=== PATIENT | female | born 1995 | race Caucasian/White ===

== ENCOUNTER 2017-03-04 21:00 | Emergency (ER) | payer SELFPAY ==
[~2017-03-04 21:00] MED LIST: NAPR250T57 PO; PHEN12.5 PO; Z.0.NO CURRENT MEDS
[2017-03-04 21:02] VITALS: BP 178/78; PULSE 114; RESP 16; TEMP 98.7; O2SAT 100
--- NOTE | 2017-03-04 22:03 | RADRPT ---
EXAM DATE/TIME: 03/04/2017 21:34 [facility] COMPARISON: No previous studies available for comparison. INDICATIONS : Chest pain today. MEDICAL HISTORY : None. SURGICAL HISTORY : None. ENCOUNTER: Initial ACUITY: 1 day PAIN SCORE: 3/10 LOCATION: Bilateral chest FINDINGS: PA and lateral views of the chest demonstrate the lungs to be symmetrically aerated without evidence of mass, infiltrate or effusion. The cardiomediastinal contours are unremarkable. Osseous structure s are intact. CONCLUSION: No acute cardiopulmonary disease. Ferny Mcgrath MD on March 04, 2017 at 22:00 Board Certified Radiologist. This report was verified electronically.
[2017-03-04 22:08] LABS: AUTOMATED NEUTROPHIL # 7.4 TH/MM3 (1.8-7.7); BASOPHIL # 0.1 TH/MM3 (0-0.2); BASOPHIL % 0.5 % (0.0-2.0); EOSINOPHIL # 0.3 TH/MM3 (0-0.4); EOSINOPHIL % 2.2 % (0.0-4.0); HEMATOCRIT 36.9 % (35.0-46.0); HEMOGLOBIN 12.7 GM/DL (11.6-15.3); LYMPH % 27.4 % (9.0-44.0); LYMPHOCYTE # 3.3 TH/MM3 (1.0-4.8); MEAN CELL VOLUME 85.7 FL (80.0-100.0); MEAN CORPUSCULAR HEMOGLOBIN 29.4 PG (27.0-34.0); MEAN CORPUSCULAR HGB CONC 34.3 % (32.0-36.0); MEAN PLATELET VOLUME 7.6 FL (7.0-11.0); MONO % 8.1 % (0.0-8.0); NEUT % 61.8 % (16.0-70.0); PLATELET COUNT 416 TH/MM3 (150-450); RED BLOOD COUNT 4.31 MIL/MM3 (4.00-5.30); RED CELL DISTRIBUTION WIDTH 13.3 % (11.6-17.2)
[2017-03-04 22:15] LABS: PROTHROMBIN TIME - PATIENT 10.2 SEC (9.8-11.6)
--- NOTE | 2017-03-04 22:20 | PD ---
HPI Chief Complaint: Chest Pain Time Seen by Provider: 22:12 Travel History International Travel<30 days: No Contact w/Intl Traveler<30days: No Traveled to known affect area: No History of Present Illness HPI 21-year-old female here for evaluation of chest pain. The patient reports sudden onset of substernal chest pain that started around 3-4 hours ago, was initially sharp and severe, now is 3 out of 10, nonradiating, slightly worse with movements. She denies dyspnea. No fevers, chills, cough, or recent illness. No hemoptysis. No paresthesias or motor deficits. No known history of cardiac disease. No history of DVT or PE. No family history of cardiac disease. She reports having a similar episode a few years ago and was told that she had some inflammation. [facility] Past Medical History Medical History: Denies Significant Hx Developmental Delay: No Immunizations Current: Yes ?: Not LMP: 02/19/17 Past Surgical History Tonsillectomy: Yes Social History Alcohol Use: No Tobacco Use: No Substance Use: No Allergies-Medications (Allergen,Severity, Reaction): Coded Allergies: clindamycin (Unverified Allergy, Unknown, 10/28/16) Reported Meds & Prescriptions Reported Meds & Active Scripts Active Phenergan (Promethazine HCl) 12.5 Mg Tab 12.5 Mg PO Q6HPRN FOR NAUSEA Naprosyn (Naproxen) 250 Mg Tab 250 Mg PO Q8HPRN 5 Days Reported No Current Meds (Miscellaneous Medication) [facility] Review of Systems Except as stated in HPI: all other systems reviewed are Neg Physical Exam Narrative GENERAL: Well-developed, well-nourished, comfortable, no apparent distress. SKIN: Focused skin assessment warm/dry. No rash. HEAD: Atraumatic. Normocephalic. EYES: Pupils equal and round. No scleral icterus. No injection or drainage. ENT: Mucous membranes pink and moist. NECK: Trachea midline. No JVD. CARDIOVASCULAR: Regular rate and rhythm. No murmur appreciated. RESPIRATORY: No accessory muscle use. Clear to auscultation. Breath sounds equal bilaterally. GASTROINTESTINAL: Abdomen soft, non-tender, nondistended. MUSCULOSKELETAL: No obvious deformities. No clubbing. No cyanosis. No edema. Mild sternal tenderness without crepitus, without step-off, without paradoxical chest wall movements. NEUROLOGICAL: Awake and alert. No obvious cranial nerve deficits. Motor grossly within normal limits. Normal speech. PSYCHIATRIC: Appropriate mood and affect; insight and judgment normal. Data Data Last Documented VS Vital Signs Date Time Temp Pulse Resp B/P (MAP) Pulse Ox O2 Delivery O2 Flow Rate FiO2 03/04/17 22:54 03/04/17 22:53 74 19 98 Room Air 03/04/17 21:02 98.7 Orders Orders Electrocardiogram (03/04/17 21:07) Ckmb (Isoenzyme) Profile (03/04/17 21:07) Complete Blood Count With Diff (03/04/17 21:07) Comprehensive Metabolic Panel (03/04/17 21:07) D-Dimer (03/04/17 21:07) Magnesium (Mg) (03/04/17 21:07) Prothrombin Time / Inr (Pt) (03/04/17 21:07) Act Partial Throm Time (Ptt) (03/04/17 21:07) Troponin I (03/04/17 21:07) Chest, Pa & Lat (03/04/17 21:07) Ed Urine Pregnancytest Poc (03/04/17 22:07) CKMB (03/04/17 21:45) CKMB% (03/04/17 21:45) Ketorolac Inj (Toradol Inj) (03/04/17 22:45) Labs Laboratory Tests Test 03/04/17 21:45 White Blood Count 12.0 TH/MM3 Red Blood Count 4.31 MIL/MM3 Hemoglobin 12.7 GM/DL Hematocrit 36.9 % Mean Corpuscular Volume 85.7 FL Mean Corpuscular Hemoglobin 29.4 PG Mean Corpuscular Hemoglobin Concent 34.3 % Red Cell Distribution Width 13.3 % Platelet Count 416 TH/MM3 Mean Platelet Volume 7.6 FL Neutrophils (%) (Auto) 61.8 % Lymphocytes (%) (Auto) 27.4 % Monocytes (%) (Auto) 8.1 % Eosinophils (%) (Auto) 2.2 % Basophils (%) (Auto) 0.5 % Neutrophils # (Auto) 7.4 TH/MM3 Lymphocytes # (Auto) 3.3 TH/MM3 Monocytes # (Auto) 1.0 TH/MM3 Eosinophils # (Auto) 0.3 TH/MM3 Basophils # (Auto) 0.1 TH/MM3 CBC Comment DIFF FINAL Differential Comment Prothrombin Time 10.2 SEC Prothromb Time International Ratio 1.0 RATIO Activated Partial Thromboplast Time 27.4 SEC D-Dimer Quantitative (PE/DVT) 0.22 MG/L FEU Blood Urea Nitrogen 11 MG/DL Creatinine 0.84 MG/DL Random Glucose 79 MG/DL Total Protein 7.8 GM/DL Albumin 3.9 GM/DL Calcium Level 8.8 MG/DL Magnesium Level 2.2 MG/DL Alkaline Phosphatase 83 U/L Aspartate Amino Transf (AST/SGOT) 26 U/L Alanine Aminotransferase (ALT/SGPT) 27 U/L Total Bilirubin 0.1 MG/DL Sodium Level 140 MEQ/L Potassium Level 3.5 MEQ/L Chloride Level 107 MEQ/L Carbon Dioxide Level 25.2 MEQ/L Anion Gap 8 MEQ/L Estimat Glomerular Filtration Rate 85 ML/MIN Total Creatine Kinase 164 U/L Creatine Kinase MB 1.3 NG/ML Troponin I LESS THAN 0.02 NG/ML MDM Medical Decision Making Medical Screen Exam Complete: Yes Emergency Medical Condition: Yes Interpretation(s) EKG: Sinus, rate 85, normal axis, normal intervals, no acute ischemic abnormality. Differential Diagnosis Musculoskeletal pain, ACS, costochondritis, pneumothorax, peritonitis, PE, pneumonia Narrative Course Initial vital signs show heart rate 114, blood pressure 178/70, pulse ox 100% on room air, oral temp of 98.7F. Heart rate on EKG is 85. Repeat vital signs show heart rate 74, blood pressure 119/74, pulse ox 98% on room air CBC is unremarkable. CMP is unremarkable. Cardiac enzymes are negative. Urine is negative. D-dimer is 0.22. Chest x-ray: No acute cardio pulmonary disease. Patient was given IV Toradol and is resting comfortably. She was made aware of all findings. I do not believe her pain was cardiac in nature. Pain is more likely costochondritis. She did have some mild sternal tenderness. She is stable for discharge home with outpatient follow-up with her primary care physician this week. She was advised on when to return to the emergency department. She verbalizes understanding and agreement with plan. Diagnosis Primary Impression: Atypical chest pain Referrals: Primary Care Physician 3 days Additional Instructions: Follow up with your primary care physician this week. Return to the emergency department for worsening symptoms or any other concerns. Disposition: DISCHARGE HOME Condition: Stable Mykel Castaneda MD Mar 04, 2017 22:20
[2017-03-04 22:23] LABS: ALBUMIN 3.9 GM/DL (3.4-5.0); AST (GOT) 26 U/L (15-37); BICARBONATE 25.2 MEQ/L (21.0-32.0); BLOOD UREA NITROGEN 11 MG/DL (7-18); CALCIUM 8.8 MG/DL (8.5-10.1); CHLORIDE 107 MEQ/L (98-107); CREATININE 0.84 MG/DL (0.50-1.00); GLOMERULAR FILTRATION RATE 85 ML/MIN (>89); GLUCOSE,RANDOM 79 MG/DL (74-106); MAGNESIUM 2.2 MG/DL (1.5-2.5); SODIUM (NA) 140 MEQ/L (136-145)
[2017-03-04 22:24] LABS: ALT (GPT) 27 U/L (10-53)
[2017-03-04 22:28] LABS: ALKALINE PHOSPHATASE 83 U/L (45-117); TOTAL BILIRUBIN ADULT 0.1 MG/DL (0.2-1.0); TOTAL PROTEIN 7.8 GM/DL (6.4-8.2); TROPONIN I LESS THAN 0.02 NG/ML (0.02-0.05)
[2017-03-04 22:38] LABS: D-DIMER 0.22 MG/L FEU (0.00-0.50)
[2017-03-04] MEDS ORDERED: KETOROLAC TROMETHAMINE 30 MG/ML (IVP) VIAL IV PUSH ONE (22:45)
[2017-03-04 22:53] VITALS: BP 119/74; PULSE 74; RESP 19; O2SAT 98
--- NOTE | 2017-03-05 13:31 | EKG ---
Date Performed: 03/04/2017 Time Performed: 21:59:21 PTAGE: 21 years EKG: Sinus rhythm NORMAL ECG NO PRIOR TRACING DOCTOR: Shaquille Prakash Interpretating Date/Time 03/05/2017 13:30:57
== END 2017-03-04 23:09 | disposition home or self-care (01) ==
LOC: NEPD 21:00
DX: R07.89 Other chest pain (principal); R11.0 Nausea; Z90.89 Acquired absence of other organs; Z88.1 Allergy status to other antibiotic agents; Z79.1 Long term (current) use of non-steroidal anti-inflammatories (NSAID); Z79.899 Other long term (current) drug therapy
CPT/HCPCS: 71020; 80053; 82550; 82552; 83735; 84484; 84703; 85025; 85379; 85610; 85730; 93005; 96374; 99285; J1885

== ENCOUNTER 2017-05-01 21:59 | Emergency (ER) | payer OTHER ==
[~2017-05-01] VITALS: Ht 162.6 cm; Wt 88.7 kg
[2017-05-01 22:03] VITALS: BP 136/76; PULSE 104; RESP 18; TEMP 97; O2SAT 98
--- NOTE | 2017-05-01 22:26 | PD ---
HPI Chief Complaint: Pain: Acute or Chronic Time Seen by Provider: 22:15 Travel History International Travel<30 days: No Contact w/Intl Traveler<30days: No Traveled to known affect area: No History of Present Illness HPI The patient is a 21-year-old female that complains of frequency and urgency since 8 PM this evening. She denies any fever. She denies any vaginal discharge. She has a sharp, achy pain over the right flank and right back. She claims a pain level of 9/10. She denies any nausea, vomiting or diarrhea. She denies any possibility of . [facility] Past Medical History Developmental Delay: No Immunizations Current: Yes ?: Not LMP: 04/23/17 Past Surgical History Tonsillectomy: Yes Social History Alcohol Use: No Tobacco Use: No Substance Use: No Allergies-Medications (Allergen,Severity, Reaction): Coded Allergies: clindamycin (Unverified Allergy, Unknown, 05/01/17) Reported Meds & Prescriptions Reported Meds & Active Scripts Active No Active Prescriptions or Reported Medications Review of Systems Except as stated in HPI: all other systems reviewed are Neg Physical Exam Narrative GENERAL: The patient is alert, oriented 3 and moderate apparent distress with her right flank discomfort. Her vital signs show heart rate of 104 but are otherwise normal. SKIN: Focused skin assessment warm/dry. HEAD: Atraumatic. Normocephalic. EYES: Pupils equal and round. No scleral icterus. No injection or drainage. ENT: No nasal bleeding or discharge. Mucous membranes pink and moist. NECK: Trachea midline. No JVD. CARDIOVASCULAR: Regular rate and rhythm. No murmur appreciated. RESPIRATORY: No accessory muscle use. Clear to auscultation. Breath sounds equal bilaterally. GASTROINTESTINAL: Abdomen soft, with tenderness to direct palpation over the right flank and right back. There is also some tenderness over the right upper quadrant and Vidal sign is negative. The abdomen is nondistended. Hepatic and splenic margins not palpable. No guarding or rebound is present. MUSCULOSKELETAL: No obvious deformities. No clubbing. No cyanosis. No edema. NEUROLOGICAL: Awake and alert. No obvious cranial nerve deficits. Motor grossly within normal limits. Normal speech. PSYCHIATRIC: Appropriate mood and affect; insight and judgment normal. Data Data Last Documented VS Vital Signs Date Time Temp Pulse Resp B/P (MAP) Pulse Ox O2 Delivery O2 Flow Rate FiO2 05/02/17 00:35 90 16 109/59 (76) 100 Room Air 05/01/17 22:03 97.0 Orders Orders Urinalysis - C+S If Indicated (05/01/17 22:26) Ed Urine Pregnancytest Poc (05/01/17 22:26) Beta Hcg (Quant/Titer) (05/01/17 22:55) Complete Blood Count With Diff (05/01/17 22:55) Comprehensive Metabolic Panel (05/01/17 22:55) Lipase (05/01/17 22:55) Iv Access Insert/Monitor (05/01/17 22:55) Ecg Monitoring (05/01/17 22:55) Oximetry (05/01/17 22:55) Ondansetron Inj (Zofran Inj) (05/01/17 23:00) Sodium Chlor 0.9% 1000 Ml Inj (Ns 1000 M (05/01/17 22:55) Sodium Chloride 0.9% Flush (Ns Flush) (05/01/17 23:00) Ketorolac Inj (Toradol Inj) (05/01/17 23:00) Ct Abd/Pel W/O Iv Contrast (05/02/17 00:16) Tamsulosin (Flomax) (05/02/17 01:15) Labs Laboratory Tests Test 05/01/17 22:25 05/01/17 23:00 Urine Color YELLOW Urine Turbidity SLIGHT Urine pH 5.5 Urine Specific [place] 1.018 Urine Protein NEG mg/dL Urine Glucose (UA) NEG mg/dL Urine Ketones TRACE mg/dL Urine Occult Blood LARGE Urine Nitrite NEG Urine Bilirubin NEG Urine Leukocyte Esterase NEG Urine RBC 100-200 /hpf Urine WBC 0-2 /hpf Urine Squamous Epithelial Cells 0-5 /hpf Urine Bacteria NONE /hpf Microscopic Urinalysis Comment CULT NOT INDICATED White Blood Count 12.4 TH/MM3 Red Blood Count 4.50 MIL/MM3 Hemoglobin 12.9 GM/DL Hematocrit 38.2 % Mean Corpuscular Volume 84.8 FL Mean Corpuscular Hemoglobin 28.6 PG Mean Corpuscular Hemoglobin Concent 33.7 % Red Cell Distribution Width 12.0 % Platelet Count 398 TH/MM3 Mean Platelet Volume 8.0 FL Neutrophils (%) (Auto) 63.6 % Lymphocytes (%) (Auto) 25.7 % Monocytes (%) (Auto) 8.1 % Eosinophils (%) (Auto) 2.2 % Basophils (%) (Auto) 0.4 % Neutrophils # (Auto) 7.9 TH/MM3 Lymphocytes # (Auto) 3.2 TH/MM3 Monocytes # (Auto) 1.0 TH/MM3 Eosinophils # (Auto) 0.3 TH/MM3 Basophils # (Auto) 0.0 TH/MM3 CBC Comment DIFF FINAL Differential Comment Blood Urea Nitrogen 12 MG/DL Creatinine 0.90 MG/DL Random Glucose 90 MG/DL Total Protein 8.0 GM/DL Albumin 4.0 GM/DL Calcium Level 9.6 MG/DL Alkaline Phosphatase 81 U/L Aspartate Amino Transf (AST/SGOT) 20 U/L Alanine Aminotransferase (ALT/SGPT) 22 U/L Total Bilirubin 0.1 MG/DL Sodium Level 138 MEQ/L Potassium Level 3.5 MEQ/L Chloride Level 104 MEQ/L Carbon Dioxide Level 25.8 MEQ/L Anion Gap 8 MEQ/L Estimat Glomerular Filtration Rate 78 ML/MIN Lipase 160 U/L Human Chorionic Gonadotropin, Quant LESS THAN 1 MIU/ML MDM Medical Decision Making Medical Screen Exam Complete: Yes Emergency Medical Condition: Yes Medical Record Reviewed: Yes Interpretation(s) The urine showed blood in the urine without any evidence of infection. The CT abdomen/pelvis without contrast shows a 3-4 mm ureteral stone with right hydronephrosis. Differential Diagnosis Urinary tract infection, right ureteral stone, kinked ureter Narrative Course The patient has a right ureteral stone. She does not have a urinary tract infection. She'll be given Flomax, Compazine, ibuprofen and Percocet. She needs to follow-up with urologist. Diagnosis Primary Impression: Right ureteral calculus Med/Other Pt SpecificInfo: Prescription(s) given Scripts Prochlorperazine Maleate (Prochlorperazine Maleate) 5 Mg Tab 5 MG PO Q6H Y for NAUSEA OR VOMITING, #30 TAB 0 Refills Prov: Larry Duarte MD 05/02/17 Oxycodone-Acetaminophen (Percocet) 5-325 mg Tab 1 TAB PO Q4H Y for PAIN, #30 TAB 0 Refills Prov: Larry Duarte MD 05/02/17 Ibuprofen (Ibuprofen) 600 Mg Tab 600 MG PO TID, #33 TAB 0 Refills Prov: Larry Duarte MD 05/02/17 Tamsulosin (Flomax) 0.4 Mg Cap 0.4 MG PO HS for Manage Prostate Problems, #20 CAP 0 Refills Prov: Larry Duarte MD 05/02/17 Disposition: 01 DISCHARGE HOME Condition: Stable Larry Duarte MD May 01, 2017 22:26
[2017-05-01 22:38] LABS: BILIRUBIN, URINE NEG (NEG); BLOOD, URINE LARGE (NEG); GLUCOSE,URINE NEG (NEG); KETONE, URINE TRACE mg/dL (NEG); NITRITE,URINE NEG (NEG); PH, URINE 5.5 (5.0-8.5); URINE LEUKOCYTE ESTERASE NEG (NEG)
[2017-05-01 22:44] LABS: URINE COLOR YELLOW (YELLW/STRAW)
[2017-05-01 22:45] LABS: RBC, URINE 100-200 /hpf (0-3); SQUAMOUS EPITHELIAL CELL URINE 0-5 /hpf (0-5); WBC, URINE 0-2 /hpf (0-5)
[2017-05-01] MEDS ORDERED: KETOROLAC TROMETHAMINE 60 MG/2 ML (IM) VIAL IM ONE (22:45)
[2017-05-01] MEDS ORDERED: SODIUM CHLOR 0.9% 1000 ML INJ 1,000 ML IV SCH (22:55)
[2017-05-01] MEDS ORDERED: SODIUM CHLORIDE 0.9% FLUSH 10 ML FLUSH IV FLUSH PRN (23:00)
[2017-05-01] MEDS ORDERED: ONDANSETRON HCL 4 MG/2 ML VIAL IVP ONE (23:00)
[2017-05-01] MEDS ORDERED: KETOROLAC TROMETHAMINE 30 MG/ML (IVP) VIAL IVP ONE (23:00)
[2017-05-01 23:15] VITALS: RESP 16; RESP 26; O2SAT 99
[2017-05-01 23:20] VITALS: BP 127/69; PULSE 92; RESP 16; O2SAT 99
[2017-05-01 23:29] LABS: AUTOMATED NEUTROPHIL # 7.9 TH/MM3 (1.8-7.7); BASOPHIL % 0.4 % (0.0-2.0); EOSINOPHIL # 0.3 TH/MM3 (0-0.4); EOSINOPHIL % 2.2 % (0.0-4.0); HEMATOCRIT 38.2 % (35.0-46.0); HEMOGLOBIN 12.9 GM/DL (11.6-15.3); LYMPH % 25.7 % (9.0-44.0); LYMPHOCYTE # 3.2 TH/MM3 (1.0-4.8); MEAN CELL VOLUME 84.8 FL (80.0-100.0); MEAN CORPUSCULAR HEMOGLOBIN 28.6 PG (27.0-34.0); MEAN CORPUSCULAR HGB CONC 33.7 % (32.0-36.0); MONO % 8.1 % (0.0-8.0); NEUT % 63.6 % (16.0-70.0); PLATELET COUNT 398 TH/MM3 (150-450); WHITE BLOOD COUNT 12.4 TH/MM3 (4.0-11.0)
[2017-05-01 23:36] LABS: CHLORIDE 104 MEQ/L (98-107); SODIUM (NA) 138 MEQ/L (136-145)
[2017-05-01 23:39] LABS: CALCIUM 9.6 MG/DL (8.5-10.1)
[2017-05-01 23:40] LABS: BICARBONATE 25.8 MEQ/L (21.0-32.0); BLOOD UREA NITROGEN 12 MG/DL (7-18); GLUCOSE,RANDOM 90 MG/DL (74-106)
[2017-05-01 23:43] LABS: ALT (GPT) 22 U/L (10-53); AST (GOT) 20 U/L (15-37); GLOMERULAR FILTRATION RATE 78 ML/MIN (>89)
[2017-05-01 23:44] LABS: TOTAL BILIRUBIN ADULT 0.1 MG/DL (0.2-1.0)
[2017-05-01 23:46] LABS: ALKALINE PHOSPHATASE 81 U/L (45-117)
[2017-05-02 00:35] VITALS: BP 109/59; PULSE 90; RESP 16; O2SAT 100
--- NOTE | 2017-05-02 00:42 | RADRPT ---
EXAM DATE/TIME: 05/02/2017 00:28 [facility] COMPARISON: No previous studies available for comparison. INDICATIONS : Right flank and back pain. ORAL CONTRAST: No oral contrast ingested. RADIATION DOSE: 21.78 CTDIvol (mGy) MEDICAL HISTORY : None SURGICAL HISTORY : None. ENCOUNTER: Initial ACUITY: 1 day PAIN SCALE: 9/10 LOCATION: Right flank TECHNIQUE: Volumetric scanning of the abdomen and pelvis was performed. Using automated exposure control and ad justment of the mA and/or kV according to patient size, radiation dose was kept as low as reasonably achievable to obtain optimal diagnostic quality images. DICOM format image data is available electro nically for review and comparison. FINDINGS: CT Abdomen: The liver, spleen, pancreas, adrenals are unremarkable. There is mild hydronephrosis in t [place] right kidney due to an approximate 3-4 mm right UVJ stone. There are 3 tiny stones in the right ki dney the largest measures almost 2-3 mm in size with a couple of tiny 1-2 mm stones in the left kidne y as well. The There is no evidence for any appreciable pathological adenopathy, free fluid, or bowel obstruction. CT pelvis: There is no evidence for mass, abscess formation, or any significant adenopathy within the pelvis. Approximate 1.8 cm simple cyst is present in the right ovary. There is sclerosis involving t [place]ston left iliac bone near the SI joint chronic in nature. CONCLUSION: Slight hydronephrosis the right kidney due to an approximate 3-4 mm right UVJ stone. Marta Guerra MD on May 02, 2017 at 0:37 Board Certified Radiologist. This report was verified electronically.
[2017-05-02] MEDS ORDERED: PROC5TAB PO (01:14)
[2017-05-02] MEDS ORDERED: IBUP-232 PO (01:14)
[2017-05-02] MEDS ORDERED: TAMS5CAP PO (01:14)
[2017-05-02] MEDS ORDERED: PERC5TAB12 PO (01:14)
[2017-05-02] MEDS ORDERED: TAMSULOSIN HCL 0.4 MG CAP PO ONE (01:15)
[2017-05-02 01:30] VITALS: BP 111/72
== END 2017-05-02 01:33 | disposition home or self-care (01) ==
LOC: PHED 21:59
DX: N13.2 Hydronephrosis with renal and ureteral calculous obstruction (principal)
CPT/HCPCS: 74176; 80053; 81001; 83690; 84702; 84703; 85025; 96361; 96372; 96374; 96375; 99284; J1885; J2405; J7030

== ENCOUNTER 2017-07-17 22:35 | Emergency (ER) | payer OTHER ==
[~2017-07-17] VITALS: Ht 165.1 cm; Wt 86.0 kg
[~2017-07-17 22:35] MED LIST changes: +IBUP-232 PO; -NAPR250T57 PO; +PERC5TAB12 PO; -PHEN12.5 PO; +PROC5TAB PO; +TAMS5CAP PO; -Z.0.NO CURRENT MEDS
[2017-07-17 23:02] VITALS: BP 147/65; PULSE 123; RESP 16; TEMP 98.3; O2SAT 96
[2017-07-18] MEDS ORDERED: IBUPROFEN 600 MG TAB PO ONE (00:15)
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
[2017-07-18] MEDS ORDERED: IBUP-232 PO (02:23)
== END 2017-07-18 02:31 | disposition home or self-care (01) ==
LOC: NEPC 22:35
DX: S93.601A Unspecified sprain of right foot, initial encounter (principal); V43.52XA Car driver injured in collision with other type car in traffic accident, initial encounter; Z72.0 Tobacco use; Z79.899 Other long term (current) drug therapy; Z88.1 Allergy status to other antibiotic agents
CPT/HCPCS: 72050; 73610; 73630; 99283; L3260